=== PATIENT | female | born 1995 | race African-American/Black ===

== ENCOUNTER 2020-06-20 17:18 | Emergency (ER) | payer SELFPAY ==
[2020-06-20 22:06] LABS: Bilirubin Negative (Negative); Blood, Urine Negative (Negative); Clarity Clear (Clear); Glucose, Urine (Dipstick) >=1000 mg/dL (Negative); Ketone, Urine Negative (Negative); Leukocyte Negative (Negative); Nitrite Negative (Negative); Protein, Urine (Dipstick) Negative (Neg-Trace); Specific Gravity, Urine 1.025 (1.005-1.030); Urobilinogen 0.2 mg/dL (Less than 2)
[2020-06-20 22:07] LABS: Pregnancy Test - Urine (BHCG) Negative (Negative); Pregu Control Background? CLEAR/WHITE (CLR/WHITE); Pregu Control Bar Appear? YES (CONTROL BAR); Specific Gravity 1.025 (1.002-1.036)
[2020-06-21 23:27] LABS: Chlamydia by PCR Not Detected (NotDetected); GC by PCR Not Detected (NotDetected)
== END 2020-06-20 23:25 | disposition home or self-care (01) ==
LOC: ERS 17:18
DX: B37.3 Candidiasis of vulva and vagina (principal); E11.9 Type 2 diabetes mellitus without complications; Z79.84 Long term (current) use of oral hypoglycemic drugs
CPT/HCPCS: 36416; 81003; 81025; 87086; 87480; 87491; 87510; 87591; 87660; 99283

== ENCOUNTER 2020-09-19 07:50 | Outpatient (CLI) | payer MEDICAID ==
--- NOTE | 2020-09-19 08:13 | ULT ---
EXAM: US Breast Limited Lt PROVIDED CLINICAL HISTORY: Bruising, dryness and itchiness of the skin focally involving a portion of the left breast COMPARISON: None FINDINGS: Limited sonographic interrogation was performed of the 9-11:00 positions of the left breast in the re gion of clinical concern. The sonographic appearance of the breast tissue in this region is normal. Consider dermatology consultation. IMPRESSION: As above.
== END 2020-09-19 07:51 | disposition home or self-care (01) ==
LOC: BICULT 07:50
PROVIDERS: ATTEND Nurse Practitioner Women's Health
DX: R23.4 Changes in skin texture (principal)